=== PATIENT | male | born 1935 | race Caucasian/White ===

== ENCOUNTER 2017-08-15 01:10 | Emergency (ER) | payer MEDICARE, BC ==
[2017-08-15 01:31] VITALS: BP 140/77
--- NOTE | 2017-08-15 01:48 | EDM.PDOC ---
ED HPI GENERAL MEDICAL PROBLEM - General Chief Complaint: General Stated Complaint: R SHOULDER PAIN Time Seen by Provider: 08/15/17 01:42 Source of Information: Reports: Patient History Limitations: Reports: No Limitations - History of Present Illness INITIAL COMMENTS - FREE TEXT/NARRATIVE: This gentleman said that he got a cortisone injection in his right arm earlier today in the orthopedic clinic in [place]. He said it felt fine for a while but tonight it's began to have severe pain he said it's in his upper arm and shoulder and it hurts if he moves his shoulder at all. He took about 3-5 mg prednisone tablets at home thinking that might help. There's been no fever. He isn't exactly sure why he got a injection because he was having some problems he said of his pain and rebound in the area of the biceps. - Related Data Allergies Allergy/AdvReac Type Severity Reaction Status Date / Time No Known Allergies Allergy Verified 08/15/17 01:21 Home Meds: Home Meds Aspirin [Halfprin] 81 mg PO BEDTIME 08/15/17 [History] Hydrochlorothiazide 25 mg PO DAILY 08/15/17 [History] Losartan [Cozaar] 100 mg PO DAILY 08/15/17 [History] Metoprolol Succinate 50 mg PO DAILY 08/15/17 [History] Omeprazole 20 mg PO BEDTIME 08/15/17 [History] Pramipexole Di-HCl [Pramipexole Dihydrochloride] 1 mg PO DAILY 08/15/17 [History ] atorvaSTATin Calcium [Atorvastatin Calcium] 20 mg PO TID 08/15/17 [History] glyBURIDE [Glyburide] 10 mg PO BID 08/15/17 [History] metFORMIN [Glucophage] 850 mg PO BIDMEALS 08/15/17 [History] Past Medical History HEENT History: Reports: Impaired Vision Cardiovascular History: Reports: Arrhythmia, High Cholesterol, Hypertension Respiratory History: Reports: Sleep Apnea Neurological History: Reports: Other (See Below) Other Neuro History: trigemnaneuraglia Endocrine/Metabolic History: Reports: Diabetes, Type II - Infectious Disease History Infectious Disease History: Reports: Chicken Pox, Measles, Mumps - Past Surgical History HEENT Surgical History: Reports: Adenoidectomy, Cataract Surgery, Detached Retina, Tonsillectomy GI Surgical History: Reports: Cholecystectomy, Colonoscopy Social & Family History - Tobacco Use Smoking Status *Q: Never Smoker - Caffeine Use Caffeine Use: Reports: Coffee - Recreational Drug Use Recreational Drug Use: No ED ROS GENERAL - Review of Systems Review Of Systems: ROS reveals no pertinent complaints other than HPI. ED EXAM, GENERAL - Physical Exam Exam: See Below Exam Limited By: No Limitations General Appearance: Alert, WD/WN, Mild Distress Eye Exam: Bilateral Eye: Normal Inspection Extremities: Other (There is a needle puncture prescott to the posterior shoulder over the joint capsule. Looks like a typical shoulder Capsule injection.. There is limited range of motion of the shoulder. Palpation of the joint capsule reveals there could possibly be a little bit of effusion in that. Neurovascular tendon is all intact to the elbow wrist and hand. He does have some pain if I tried to manipulate the shoulder. There is no evidence of any inflammation.) Course - Vital Signs Last Recorded V/S: Last Vital Signs Temp 36.4 C 08/15/17 01:31 Pulse 75 08/15/17 01:31 Resp 18 08/15/17 01:31 BP 140/77 08/15/17 01:31 Pulse Ox 93 L 08/15/17 01:31 Departure - Departure Time of Disposition: 01:46 Disposition: Home, Self-Care 01 Condition: Fair Clinical Impression: Right shoulder pain - Discharge Information Referrals: Ace Slater MD [Primary Care Provider] - Additional Instructions: The pain in your shoulder was probably caused by the injection. The numbing medication probably lidocaine has now worn off. The steroid really hasn't had time to start working yet. There may be a little bit of pressure inside the joint capsule just because of the amount of medication that was put into it which actually causes some pressure inside the joint. It is too early to get an infection in the joint. There could also be a little bit of bleeding into the joint. For pain use the [place] 5/325 one or 2 tablets every 4 hours as needed. This medication can cause sedation cause falls and impaired driving. The shoulder should improve over the next 12-24 hours. If it seems to be getting worse then be sure to see your Dr. or return to the ER.
== END 2017-08-15 02:04 | disposition home or self-care (01) ==
LOC: JP.ED 01:10
DX: M25.511 Pain in right shoulder (principal); E78.00 Pure hypercholesterolemia, unspecified; I10 Essential (primary) hypertension; E11.9 Type 2 diabetes mellitus without complications; Z90.49 Acquired absence of other specified parts of digestive tract; Z79.82 Long term (current) use of aspirin; Z79.899 Other long term (current) drug therapy
CPT/HCPCS: 99283

== ENCOUNTER 2019-07-20 17:24 | Emergency (ER) | payer MEDICARE, BC ==
[2019-07-20 17:57] VITALS: BP 157/81
--- NOTE | 2019-07-20 18:21 | EDM.PDOC ---
ED HPI GENERAL MEDICAL PROBLEM - General Chief Complaint: General Stated Complaint: DIZZY Time Seen by Provider: 07/20/19 18:05 Source of Information: Reports: Patient History Limitations: Reports: No Limitations - History of Present Illness INITIAL COMMENTS - FREE TEXT/NARRATIVE: 83-year-old male having problems with recurring dizziness, feeling lightheaded but no syncopal episodes. This has been an ongoing problem for him but today it was fairly persistent so he thought he should get checked out. When he was having symptoms he checked his glucose and it was normal, his blood pressure was normal and pulse was 67. He did not experience vertigo. Otherwise he physically feels fine, without fever, shortness of breath, nausea vomiting. He is hungry. He does admit he may not drink enough water. No rashes or joint pains , no peripheral edema or swelling. He recently had a carotid ultrasound which was normal according to the patient. 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 Denies: Confusion, Chest Pain, Cough, Diaphoresis, Fever/Chills, Headaches, Shortness of Breath - Related Data Allergies Allergy/AdvReac Type Severity Reaction Status Date / Time No Known Allergies Allergy Verified 07/20/19 17:53 Home Meds: Home Meds Aspirin [Halfprin] 81 mg PO BEDTIME 08/15/17 [History] Losartan [Cozaar] 100 mg PO DAILY 08/15/17 [History] Metoprolol Succinate 50 mg PO DAILY 08/15/17 [History] Omeprazole 20 mg PO BEDTIME 08/15/17 [History] Pramipexole Di-HCl [Pramipexole Dihydrochloride] 1 mg PO DAILY 08/15/17 [History ] atorvaSTATin Calcium [Atorvastatin Calcium] 20 mg PO DAILY 08/15/17 [History] glyBURIDE [Glyburide] 10 mg PO DAILY 08/15/17 [History] hydroCHLOROthiazide [Hydrochlorothiazide] 25 mg PO DAILY 08/15/17 [History] metFORMIN HCl [Metformin HCl] 2,000 mg PO DAILY 07/20/19 [History] Past Medical History HEENT History: Reports: Impaired Vision Cardiovascular History: Reports: Arrhythmia, High Cholesterol, Hypertension Respiratory History: Reports: Sleep Apnea Gastrointestinal History: Reports: Cholelithiasis Genitourinary History: Reports: BPH, Prostate Disorder Neurological History: Reports: Other (See Below) Other Neuro History: trigemnaneuraglia Endocrine/Metabolic History: Reports: Diabetes, Type II - Infectious Disease History Infectious Disease History: Reports: Chicken Pox, Measles, Mumps - Past Surgical History HEENT Surgical History: Reports: Adenoidectomy, Cataract Surgery, Detached Retina, Tonsillectomy GI Surgical History: Reports: Cholecystectomy, Colonoscopy Social & Family History - Tobacco Use Smoking Status *Q: Never Smoker - Caffeine Use Caffeine Use: Reports: Coffee - Recreational Drug Use Recreational Drug Use: No ED ROS GENERAL - Review of Systems Review Of Systems: See Below Constitutional: Denies: Fever, Chills HEENT: Denies: Vertigo Respiratory: Denies: Shortness of Breath, Cough Cardiovascular: Denies: Chest Pain Endocrine: Denies: Fatigue GI/Abdominal: Denies: Abdominal Pain, Nausea, Vomiting : Reports: No Symptoms Skin: Reports: No Symptoms Neurological: Reports: Dizziness Psychiatric: Reports: No Symptoms ED EXAM, GENERAL - Physical Exam Exam: See Below Free Text/Narrative:: Patient is a sinus rhythm with occasional PACs, blood pressure 137/77 and O2 saturations 94%. He is afebrile. Exam Limited By: No Limitations General Appearance: Alert, No Apparent Distress Eye Exam: Bilateral Eye: EOMI Head: Atraumatic Neck: Normal Inspection, Non-Tender Respiratory/Chest: No Respiratory Distress, Lungs Clear Cardiovascular: Regular Rate, Rhythm, Extra Beats GI/Abdominal: Soft, Non-Tender Extremities: Normal Inspection. No: Pedal Edema Neurological: Alert, Oriented, No Motor/Sensory Deficits Psychiatric: Normal Affect, Normal Mood Skin Exam: Warm, Dry Course - Vital Signs Last Recorded V/S: Last Vital Signs Temp 96.5 F 07/20/19 17:52 Pulse 64 07/20/19 17:52 Resp 16 07/20/19 17:52 BP 157/81 H 07/20/19 17:52 Pulse Ox 94 L 07/20/19 17:52 - Orders/Labs/Meds Labs: Laboratory Tests 07/20/19 07/20/19 Range/Units 18:32 18:32 WBC 8.2 (4.5-11.0) K/uL RBC 4.94 (4.30-5.90) M/uL Hgb 14.7 (12.0-15.0) g/dL Hct 46.1 (40.0-54.0) % MCV 93 (80-98) fL MCH 30 (27-31) pg MCHC 32 (32-36) % Plt Count 274 (150-400) K/uL Neut % (Auto) 67 H (36-66) % Lymph % (Auto) 20 L (24-44) % [place] % (Auto) 10 H (2-6) % Eos % (Auto) 3 (2-4) % Baso % (Auto) 0 (0-1) % Sodium 137 L (140-148) mmol/L Potassium 4.0 (3.6-5.2) mmol/L Chloride 102 (100-108) mmol/L Carbon Dioxide 25 (21-32) mmol/L Anion Gap 14.0 (5.0-14.0) mmol/L BUN 26 H (7-18) mg/dL Creatinine 1.4 H (0.8-1.3) mg/dL Est Cr Clr Drug Dosing 42.58 mL/min Estimated GFR (MDRD) 48 L (>60) Glucose 131 H (74-106) mg/dL Calcium 9.0 (8.5-10.1) mg/dL Total Bilirubin 0.4 (0.2-1.0) mg/dL AST 21 (15-37) U/L ALT 31 (12-78) U/L Alkaline Phosphatase 58 (46-116) U/L Troponin I < 0.017 (0.000-0.056) ng/mL Total Protein 7.1 (6.4-8.2) g/dL Albumin 3.4 (3.4-5.0) g/dL Globulin 3.7 H (2.3-3.5) g/dL Albumin/Globulin Ratio 0.9 L (1.2-2.2) TSH, Ultra Sensitive 2.374 (0.358-3.740) uIU/mL - Re-Assessments/Exams Free Text/Narrative Re-Assessment/Exam: 07/20/19 18:20 CBC CMP and troponin along with TSH will be obtained. He'll be kept on cardiac monitoring. While watching the monitor there were a few moderate increase distance of up to 1.5 seconds between sinus beats. 07/20/19 19:14 CBC is normal CMP shows renal insufficiency. I don't have any previous levels to compare but the patient does think that that has been a problem. His TSH is normal and troponin is 0. I encouraged him to follow up with his primary provider to discuss his medications, maybe reducing metoprolol could be beneficial or a Holter monitor will be informative. Departure - Departure Time of Disposition: 19:23 Disposition: Home, Self-Care 01 Condition: Good Clinical Impression: Dizziness - Discharge Information Instructions: Dizziness, [id number] Referrals: Ace Slater MD [Primary Care Provider] - Forms: ED Department Discharge Care Plan Goals: Continue your current medications, but consider rechecking with Dr. Slater to discuss medication changes to help with your symptoms. A Holter monitor also may be beneficial. Return anytime if worsening or concerns.
== END 2019-07-20 19:23 | disposition home or self-care (01) ==
LOC: JP.ED 17:24
DX: R42 Dizziness and giddiness (principal); I10 Essential (primary) hypertension; E78.00 Pure hypercholesterolemia, unspecified; E11.9 Type 2 diabetes mellitus without complications; Z90.49 Acquired absence of other specified parts of digestive tract; Z98.890 Other specified postprocedural states; Z79.82 Long term (current) use of aspirin; Z79.84 Long term (current) use of oral hypoglycemic drugs; Z79.899 Other long term (current) drug therapy
CPT/HCPCS: 36415; 80053; 84443; 84484; 85025; 99283

== ENCOUNTER 2019-08-19 20:08 | Emergency (ER) | payer MEDICARE, BC ==
[2019-08-19 20:25] VITALS: BP 136/72; PULSE 80
[2019-08-19] MEDS ORDERED: Lidocaine 2% Jelly 10 ML Urojet MUCMEM ONE (20:44)
--- NOTE | 2019-08-19 20:50 | EDM.PDOC ---
ED HPI GENERAL MEDICAL PROBLEM - General Chief Complaint: Genitourinary Problem Stated Complaint: UNABLE TO URINATE Time Seen by Provider: 08/19/19 20:35 Source of Information: Reports: Patient, RN History Limitations: Reports: No Limitations - History of Present Illness INITIAL COMMENTS - FREE TEXT/NARRATIVE: 83 yo male here unable to void. Had his quijano catheter out this am after a urological procedure on his prostate. Is not miserable now, but does have urges from time to time. Last void had no visible blood present. Onset: Today Onset Date: 08/19/19 Onset Time: 14:00 (last void) Duration: Hour(s):, Getting Worse Location: Reports: Pelvis (bladder) Quality: Reports: Other (bladder cramps intermittently) Severity: Moderate Improves with: Reports: None Worsens with: Reports: Other (time) Context: Reports: Other (see HPI) Associated Symptoms: Reports: No Other Symptoms Treatments HEALTH OUTCOMES LIAISON: Reports: Other (see below) (none) - Related Data Allergies Allergy/AdvReac Type Severity Reaction Status Date / Time No Known Allergies Allergy Verified 08/19/19 20:25 Home Meds: Home Meds Aspirin [Halfprin] 81 mg PO BEDTIME 08/15/17 [History] Losartan [Cozaar] 100 mg PO DAILY 08/15/17 [History] Metoprolol Succinate 50 mg PO DAILY 08/15/17 [History] Omeprazole 20 mg PO BEDTIME 08/15/17 [History] Pramipexole Di-HCl [Pramipexole Dihydrochloride] 1 mg PO DAILY 08/15/17 [History ] atorvaSTATin Calcium [Atorvastatin Calcium] 20 mg PO DAILY 08/15/17 [History] glyBURIDE [Glyburide] 10 mg PO DAILY 08/15/17 [History] hydroCHLOROthiazide [Hydrochlorothiazide] 25 mg PO DAILY 08/15/17 [History] metFORMIN HCl [Metformin HCl] 2,000 mg PO DAILY 07/20/19 [History] Insulin Glarg,Human.Rec.Analog [Lantus Solostar] 300 units SQ BEDTIME 08/19/19 [ History] Past Medical History HEENT History: Reports: Cataract, Impaired Vision Cardiovascular History: Reports: Arrhythmia, High Cholesterol, Hypertension Respiratory History: Reports: Sleep Apnea Gastrointestinal History: Reports: Cholelithiasis, GERD Genitourinary History: Reports: BPH, Prostate Disorder Neurological History: Reports: Other (See Below) Other Neuro History: trigemnaneuraglia Endocrine/Metabolic History: Reports: Diabetes, Type II - Infectious Disease History Infectious Disease History: Reports: Chicken Pox, Measles - Past Surgical History HEENT Surgical History: Reports: Adenoidectomy, Cataract Surgery, Detached Retina, Tonsillectomy GI Surgical History: Reports: Cholecystectomy, Colonoscopy Male Surgical History: Reports: Prostatectomy Social & Family History - Tobacco Use Smoking Status *Q: Never Smoker - Caffeine Use Caffeine Use: Reports: Coffee ED ROS GENERAL - Review of Systems Review Of Systems: ROS reveals no pertinent complaints other than HPI. Constitutional: Reports: No Symptoms : Reports: Urinary Retention Skin: Reports: No Symptoms ED EXAM, RENAL/ - Physical Exam Exam: See Below Exam Limited By: No Limitations General Appearance: Alert, WD/WN, No Apparent Distress Eye Exam: Bilateral Eye: Normal Inspection Ears: Hearing Grossly Normal Nose: Normal Inspection, No Blood Throat/Mouth: Normal Inspection, Normal Lips, Normal Voice, No Airway Compromise Head: Atraumatic, Normocephalic Respiratory/Chest: No Respiratory Distress, No Accessory Muscle Use Cardiovascular: Regular Rate, Rhythm GI/Abdominal: Soft, Non-Tender, No Distention, Other (some suprapubic pressure with palpation.) (Male) Exam: Suprapubic Fullness Extremities: Normal Inspection Neurological: Alert, Oriented, CN II-XII Intact, Normal Cognition, No Motor/ Sensory Deficits Psychiatric: Normal Affect, Normal Mood Skin Exam: Warm, Dry, Intact, Normal Color, No Rash Course - Vital Signs Text/Narrative:: quijano placed by RN, 400+ ml of urine in his bladder. Last Recorded V/S: Last Vital Signs Temp 36.6 C 08/19/19 20:27 Pulse 80 08/19/19 20:27 Resp 16 08/19/19 20:27 BP 136/72 08/19/19 20:27 Pulse Ox 93 L 08/19/19 20:27 - Orders/Labs/Meds Orders: Active Orders 24 hr Category Date Time Status Bladder Scan [RC] ASDIRECTED Care 08/19/19 20:49 Active Quijano Catheter Insertion [Insert Urinary Catheter] [OM. Care 08/19/19 20:15 Ordered PC] Q24H Urinary Catheter Assessment [RC] ASDIRECTED Care 08/19/19 20:10 Active Labs: Laboratory Tests 08/19/19 Range/Units 21:15 Urine Color Brown A (YELLOW) Urine Appearance Turbid A (CLEAR) Urine pH 5.0 (5.0-8.0) Ur Specific [place] 1.025 (1.008-1.030) Urine Protein >=300 H (NEGATIVE) mg/dL Urine Glucose (UA) 100 H (NEGATIVE) mg/dL Urine Ketones Trace H (NEGATIVE) mg/dL Urine Occult Blood Large H (NEGATIVE) Urine Nitrite Positive H (NEGATIVE) Urine Bilirubin Small H (NEGATIVE) Urine Urobilinogen 1.0 (0.2-1.0) EU/dL Ur Leukocyte Esterase Negative (NEGATIVE) Urine RBC Packed H (0-5) Urine WBC 0-5 (0-5) Ur Epithelial Cells Not seen Amorphous Sediment Moderate Urine Bacteria Moderate Urine Mucus Not seen Meds: Medications Discontinued Medications Generic Name Dose Route Start Last Admin Trade Name Freq PRN Reason Stop Dose Admin Lidocaine HCl 10 ml 08/19/19 20:44 08/19/19 20:58 Xylocaine 2% Jelly MUCMEM 08/19/19 20:45 10 ml ONETIME ONE Administration Departure - Departure Time of Disposition: 21:33 Disposition: Home, Self-Care 01 Condition: Good Clinical Impression: Acute urinary retention - Discharge Information *PRESCRIPTION DRUG MONITORING PROGRAM REVIEWED*: No *COPY OF PRESCRIPTION DRUG MONITORING REPORT IN PATIENT ROYA: No Instructions: Acute Urinary Retention, Male Referrals: Ace Slater MD [Primary Care Provider] - Forms: ED Department Discharge Additional Instructions: Call your urologist tomorrow regarding recommendations for when/where to have your catheter removed. Return here as needed. - My Orders Last 24 Hours: My Active Orders 08/19/19 20:10 Urinary Catheter Assessment [RC] ASDIRECTED 08/19/19 20:15 Quijano Catheter Insertion [Insert Urinary Catheter] [OM.PC] Q24H 08/19/19 20:49 Bladder Scan [RC] ASDIRECTED - Assessment/Plan Last 24 Hours: My Active Orders 08/19/19 20:10 Urinary Catheter Assessment [RC] ASDIRECTED 08/19/19 20:15 Quijano Catheter Insertion [Insert Urinary Catheter] [OM.PC] Q24H 08/19/19 20:49 Bladder Scan [RC] ASDIRECTED
== END 2019-08-19 21:39 | disposition home or self-care (01) ==
LOC: JP.ED 20:08
DX: R33.9 Retention of urine, unspecified (principal); I10 Essential (primary) hypertension; E11.9 Type 2 diabetes mellitus without complications; K21.9 Gastro-esophageal reflux disease without esophagitis; E78.00 Pure hypercholesterolemia, unspecified; Z90.49 Acquired absence of other specified parts of digestive tract; Z79.899 Other long term (current) drug therapy; Z79.82 Long term (current) use of aspirin; Z79.4 Long term (current) use of insulin
CPT/HCPCS: 51702; 51798; 81001; 99283

== ENCOUNTER 2019-08-24 04:45 | Emergency (ER) | payer MEDICARE, BC ==
[2019-08-24 05:04] VITALS: BP 159/84; PULSE 56
[2019-08-24] MEDS ORDERED: Lidocaine 2% Jelly 10 ML Urojet ONE (05:18)
[2019-08-24] MEDS ORDERED: Lidocaine 2% Jelly 10 ML Urojet MUCMEM ONE (05:18)
--- NOTE | 2019-08-24 05:21 | EDM.PDOC ---
ED HPI GENERAL MEDICAL PROBLEM - General Chief Complaint: Genitourinary Problem Stated Complaint: TROUBLE PEEING/DIARRHEA Time Seen by Provider: 08/24/19 05:17 Source of Information: Reports: Patient History Limitations: Reports: No Limitations - History of Present Illness INITIAL COMMENTS - FREE TEXT/NARRATIVE: This gentleman is here for urinary retention. He had prostate surgery about a week ago. He had a catheter inserted her second time which was removed yesterday. Since that time he is only been able to dribble. He had a little bit of diarrhea on the way to the hospital. Lower Abdomen Pain Score (Numeric/FACES): 8 - Related Data Allergies Allergy/AdvReac Type Severity Reaction Status Date / Time No Known Allergies Allergy Verified 08/19/19 20:25 Home Meds: Home Meds Aspirin [Halfprin] 81 mg PO BEDTIME 08/15/17 [History] Losartan [Cozaar] 100 mg PO DAILY 08/15/17 [History] Metoprolol Succinate 50 mg PO DAILY 08/15/17 [History] Omeprazole 20 mg PO BEDTIME 08/15/17 [History] Pramipexole Di-HCl [Pramipexole Dihydrochloride] 1 mg PO DAILY 08/15/17 [History ] atorvaSTATin Calcium [Atorvastatin Calcium] 20 mg PO DAILY 08/15/17 [History] glyBURIDE [Glyburide] 10 mg PO DAILY 08/15/17 [History] hydroCHLOROthiazide [Hydrochlorothiazide] 25 mg PO DAILY 08/15/17 [History] metFORMIN HCl [Metformin HCl] 2,000 mg PO DAILY 07/20/19 [History] Insulin Glarg,Human.Rec.Analog [Lantus Solostar] 300 units SQ BEDTIME 08/19/19 [ History] Past Medical History HEENT History: Reports: Cataract, Impaired Vision Cardiovascular History: Reports: Arrhythmia, High Cholesterol, Hypertension Respiratory History: Reports: Sleep Apnea Gastrointestinal History: Reports: Cholelithiasis, GERD Genitourinary History: Reports: BPH, Prostate Disorder Neurological History: Reports: Other (See Below) Other Neuro History: trigemnaneuraglia Endocrine/Metabolic History: Reports: Diabetes, Type II - Infectious Disease History Infectious Disease History: Reports: Chicken Pox, Measles - Past Surgical History HEENT Surgical History: Reports: Adenoidectomy, Cataract Surgery, Detached Retina, Tonsillectomy GI Surgical History: Reports: Cholecystectomy, Colonoscopy Male Surgical History: Reports: Prostatectomy Social & Family History - Family History Family Medical History: Noncontributory - Tobacco Use Smoking Status *Q: Former Smoker Used Tobacco, but Quit: Yes Month/Year Tobacco Last Used: 50 years ago - Caffeine Use Caffeine Use: Reports: Coffee Caffeine Use Comment: couple cups of coffee per day - Alcohol Use Days Per Week of Alcohol Use: 2 Number of Drinks Per Day: 1 Total Drinks Per Week: 2 - Recreational Drug Use Recreational Drug Use: No ED ROS GENERAL - Review of Systems Review Of Systems: ROS reveals no pertinent complaints other than HPI. ED EXAM, RENAL/ - Physical Exam Exam: See Below Exam Limited By: No Limitations General Appearance: Alert, WD/WN, Mild Distress GI/Abdominal: Soft, Non-Tender, Other (Palpable distended bladder) Course - Vital Signs Last Recorded V/S: Last Vital Signs Temp 36.1 C 08/24/19 05:02 Pulse 56 L 08/24/19 05:02 Resp 16 08/24/19 05:02 BP 159/84 H 08/24/19 05:02 Pulse Ox 95 08/24/19 05:02 - Re-Assessments/Exams Free Text/Narrative Re-Assessment/Exam: 08/24/19 05:19 Bladder began shows greater than 500 mL [place] catheter inserted Departure - Departure Time of Disposition: 05:20 Disposition: Home, Self-Care 01 Condition: Fair Clinical Impression: Acute urinary retention - Discharge Information Referrals: Ace Slater MD [Primary Care Provider] - Additional Instructions: Follow-up with the urologist or your personal physician in the next 2 or 3 days
== END 2019-08-24 05:49 | disposition home or self-care (01) ==
LOC: JP.ED 04:45
DX: R33.9 Retention of urine, unspecified (principal); I10 Essential (primary) hypertension; E78.5 Hyperlipidemia, unspecified; K21.9 Gastro-esophageal reflux disease without esophagitis; E11.9 Type 2 diabetes mellitus without complications; Z79.82 Long term (current) use of aspirin; Z79.4 Long term (current) use of insulin; Z87.891 Personal history of nicotine dependence
CPT/HCPCS: 51702; 99283; 99283-25

== ENCOUNTER 2020-08-08 15:56 | Emergency (ER) | payer MEDICARE, BC, OTHER ==
[2020-08-08 16:19] VITALS: BP 137/68; PULSE 65
[2020-08-08] MEDS ORDERED: Bacitracin Oint 1 GM U/D Packet TOP ONE (16:25)
[2020-08-08] MEDS ORDERED: Diphtheria,Pertussis(Acell),Tetanus Vaccine 0.5 ML SDV IM ONE (16:26)
--- NOTE | 2020-08-08 16:31 | EDM.PDOC ---
ED HPI GENERAL MEDICAL PROBLEM - General Chief Complaint: Lower Extremity Injury/Pain Stated Complaint: Hip pain on L after fall today Time Seen by Provider: 08/08/20 16:20 Source of Information: Reports: Patient, Old Records, RN History Limitations: Reports: No Limitations - History of Present Illness INITIAL COMMENTS - FREE TEXT/NARRATIVE: 84 yo male fell at home just before arrival and complains of a skin tear of his R elbow and L hip pain with movement only. He made it into the ER with the aid of a walker. No tx prior to arrival. Does not know when he last had a tetanus vaccine. Onset: Today, Sudden Onset Date: 08/08/20 Duration: Minutes: Location: Reports: Lower Extremity, Left (hip) Quality: Reports: Dull Severity: Mild (at rest) Improves with: Reports: Rest Worsens with: Reports: Movement Context: Reports: Trauma Associated Symptoms: Reports: No Other Symptoms Treatments CARPET BINDER: Reports: Other (see below) (none) - Related Data Allergies Allergy/AdvReac Type Severity Reaction Status Date / Time No Known Allergies Allergy Verified 08/19/19 20:25 Home Meds: Home Meds Aspirin [Halfprin] 81 mg PO BEDTIME 08/15/17 [History] Losartan [Cozaar] 100 mg PO DAILY 08/15/17 [History] Metoprolol Succinate 50 mg PO DAILY 08/15/17 [History] Omeprazole 20 mg PO BEDTIME 08/15/17 [History] Pramipexole Di-HCl [Pramipexole Dihydrochloride] 1 mg PO DAILY 08/15/17 [History] atorvaSTATin Calcium [Atorvastatin Calcium] 20 mg PO DAILY 08/15/17 [History] glyBURIDE [Glyburide] 10 mg PO BID 08/15/17 [History] hydroCHLOROthiazide [Hydrochlorothiazide] 25 mg PO DAILY 08/15/17 [History] metFORMIN HCl [Metformin HCl] 2,000 mg PO DAILY 07/20/19 [History] Acetaminophen/HYDROcodone [[place] 325-5 MG] 1 - 2 tab PO Q6H PRN #10 tab 08/08/20 [Rx] Insulin Glargine,Hum.Rec.Anlog [Lantus Solostar] 20 units SUBCNJ BEDTIME 08/08/20 [History] amLODIPine Besylate [Norvasc] 10 mg PO DAILY 08/08/20 [History] Past Medical History HEENT History: Reports: Cataract, Impaired Vision Cardiovascular History: Reports: Arrhythmia, High Cholesterol, Hypertension Respiratory History: Reports: Sleep Apnea Gastrointestinal History: Reports: Cholelithiasis, GERD Genitourinary History: Reports: BPH, Prostate Disorder Neurological History: Reports: Other (See Below) Other Neuro History: trigemnaneuraglia Endocrine/Metabolic History: Reports: Diabetes, Type II Oncologic (Cancer) History: Reports: Squamous Cell Carcinoma - Infectious Disease History Infectious Disease History: Reports: Chicken Pox, Measles - Past Surgical History HEENT Surgical History: Reports: Adenoidectomy, Cataract Surgery, Detached Retina, Tonsillectomy GI Surgical History: Reports: Cholecystectomy, Colonoscopy Male Surgical History: Reports: Prostatectomy Social & Family History - Family History Family Medical History: Noncontributory - Caffeine Use Caffeine Use: Reports: Coffee Caffeine Use Comment: couple cups of coffee per day - Recreational Drug Use Recreational Drug Use: No Review of Systems - Review of Systems Review Of Systems: See Below Constitutional: Reports: No Symptoms Musculoskeletal: Reports: Joint Pain (L lateral hip). Denies: Joint Swelling Skin: Reports: Wound (skin tear of the R elbow) Neurological: Reports: No Symptoms ED EXAM, GENERAL - Physical Exam Exam: See Below Exam Limited By: No Limitations General Appearance: Alert, WD/WN, No Apparent Distress Extremities: Normal Inspection, No Pedal Edema, Other (no pain with internal/external rotation. If I lift the L leg above 30 degrees he gets lateral hip pain. Pressing on the lateral L hip does not cause pain. ). No: Normal Range of Motion, Non-Tender, Pedal Edema Neurological: Alert, Oriented, CN II-XII Intact, Normal Cognition, No Motor/Sensory Deficits Psychiatric: Normal Affect, Normal Mood Skin Exam: Warm, Dry, Normal Color, No Rash, Wound/Incision (skin tear R elbow) Course - Vital Signs Last Recorded V/S: Last Vital Signs Temp 36.4 C 08/08/20 16:19 Pulse 65 08/08/20 16:19 Resp 16 08/08/20 16:19 BP 137/68 08/08/20 16:19 Pulse Ox 95 08/08/20 16:19 - Orders/Labs/Meds Orders: Active Orders 24 hr Category Date Time Status Vaccines to be Administered [RC] PER UNIT ROUTINE Care 08/08/20 16:27 Active Hip wo Cont Lt [CT] Stat Exams 08/08/20 16:25 Taken Meds: Medications Discontinued Medications Generic Name Dose Route Start Last Admin Trade Name Kassidy PRN Reason Stop Dose Admin Hydrocodone Bitart/Acetaminophen 1 tab 08/08/20 16:46 08/08/20 16:55 [place] 325-5 Mg PO 08/08/20 16:47 1 tab ONETIME ONE Administration Bacitracin 1 dose 08/08/20 16:25 08/08/20 16:55 Bacitracin Oint 1 Gm TOP 08/08/20 16:26 1 dose ONETIME ONE Administration Diphtheria/Tetanus/Acell Pertussis 0.5 ml 08/08/20 16:26 08/08/20 16:56 Adacel IM 08/08/20 16:27 0.5 ml .ONCE ONE Administration - Radiology Interpretation Free Text/Narrative:: CT of L hip without contrast- IMPRESSION: 1. No fracture. No acute findings. 2. Mild osteoarthritis of the left hip. 3. Degenerative changes of the sacroiliac joints and lower lumbar spine. Dictated by Rupert Laws MD @ 08/08/2020 5:02:[address] Results Date: 08/08/20 CT Results Time: 17:03 Departure - Departure Time of Disposition: 17:10 Disposition: Home, Self-Care 01 Condition: Fair Clinical Impression: Strain of left hip Qualifiers: Encounter type: initial encounter Qualified Code(s): S76.012A - Strain of muscle, fascia and tendon of left hip, initial encounter Skin tear of left elbow without complication Qualifiers: Encounter type: initial encounter Qualified Code(s): S51.012A - Laceration without foreign body of left elbow, initial encounter - Discharge Information *PRESCRIPTION DRUG MONITORING PROGRAM REVIEWED*: No *COPY OF PRESCRIPTION DRUG MONITORING REPORT IN PATIENT ROYA: No Referrals: Ace Slater MD [Primary Care Provider] - Forms: ED Department Discharge Additional Instructions: Use Aleve 1 every 8-12 hrs with food for pain relief. Add either acetaminophen OR [place] for added relief. Use your walker to assist with walking. Keep your elbow clean with soap and water starting tomorrow afternoon, do this at least twice a day and apply antibiotic ointment afterwards. Recheck if either your hip is not improving or if your elbow looks infected. Sepsis Event Note (ED) - Evaluation Sepsis Screening Result: No Definite Risk - Focused Exam Vital Signs: Vital Signs Temp Pulse Resp BP Pulse Ox 08/08/20 16:19 36.4 C 65 16 137/68 95 08/08/20 16:18 36.4 C 65 16 137/68 95 - My Orders Last 24 Hours: My Active Orders 08/08/20 16:25 Hip wo Cont Lt [CT] Stat 08/08/20 16:27 Vaccines to be Administered [RC] PER UNIT ROUTINE - Assessment/Plan Last 24 Hours: My Active Orders 08/08/20 16:25 Hip wo Cont Lt [CT] Stat 08/08/20 16:27 Vaccines to be Administered [RC] PER UNIT ROUTINE
[2020-08-08] MEDS ORDERED: Acetaminophen/HYDROcodone 325-5 MG Tab PO ONE (16:46)
--- NOTE | 2020-08-08 17:03 | CRLCT ---
HISTORY: Fall. Injury. TECHNIQUE: CT left hip without contrast. COMPARISON: None. FINDINGS: No fracture. Mild osteoarthritis of the left hip. Advanced degenerative changes of both sacroiliac joints. Lower lumbar spine degenerative changes. Chondrocalcinosis of the pubic symphysis. No lytic or blastic bone lesions. No soft tissue hematoma. Atherosclerotic calcifications. Prostate is enlarged. Colonic diverticulosis. No lymphadenopathy. IMPRESSION: 1. No fracture. No acute findings. 2. Mild osteoarthritis of the left hip. 3. Degenerative changes of the sacroiliac joints and lower lumbar spine. Dictated by Rupert Laws MD @ 08/08/2020 5:02:16 PM Please note that all CT scans at this facility use dose modulation, iterative reconstruction, and/or weight-based dosing when appropriate to reduce radiation dose to as low as reasonably achievable. Dictated by: Rupert Laws MD @ 08/08/2020 17:02:22 (Electronically Signed)
== END 2020-08-08 17:20 | disposition home or self-care (01) ==
LOC: JP.ED 15:56
DX: S51.012A Laceration without foreign body of left elbow, initial encounter (principal); S51.011A Laceration without foreign body of right elbow, initial encounter; S76.012A Strain of muscle, fascia and tendon of left hip, initial encounter; I10 Essential (primary) hypertension; E78.00 Pure hypercholesterolemia, unspecified; K21.9 Gastro-esophageal reflux disease without esophagitis; E11.9 Type 2 diabetes mellitus without complications; Z79.82 Long term (current) use of aspirin; Z79.4 Long term (current) use of insulin; Z79.899 Other long term (current) drug therapy; Z23 Encounter for immunization; W19.XXXA Unspecified fall, initial encounter; Y92.59 Other trade areas as the place of occurrence of the external cause
CPT/HCPCS: 73700; 90471; 90715; 99283; A9270